=== PATIENT | female | born 1985 | race Caucasian/White ===

== ENCOUNTER 2019-04-27 11:38 | Day surgery (SDC) | payer MEDICAID ==
[~2019-04-27 11:38] MED LIST: CEFAZOLIN 2 GM/50 ML (PMX) 50 ML IVPB; SUGAMMADEX SODIUM 200 MG/2 ML VIAL IV
[2019-04-27] MEDS: LACTATED RINGER'S 1,000 ML IV (13:22)
[2019-04-27] MEDS ORDERED: KETOROLAC 30 MG INJ IV (14:30)
[2019-04-27] MEDS ORDERED: DESFLURANE 15 MIN (14:30)
[2019-04-27] MEDS ORDERED: OXYCODONE/ACETAMINOPHEN (5/325) TAB PO ×2 (14:30)
[2019-04-27] MEDS ORDERED: CEFAZOLIN 1 GM INJ (14:30)
[2019-04-27] MEDS ORDERED: FENTAnyl 50 MCG/ML VIAL IV ×3 (14:30)
[2019-04-27] MEDS ORDERED: HYDROmorphONE 1 MG/5 ML IV SYRINGE IV ×2 (14:30)
[2019-04-27] MEDS ORDERED: DIPHENHYDRAMINE 50 MG INJ IV (14:30)
[2019-04-27] MEDS ORDERED: MEPERIDINE 25 MG INJ IV (14:30)
[2019-04-27] MEDS ORDERED: ROCURONIUM 50 MG INJ ×2 (14:33→16:05)
[2019-04-27] MEDS ORDERED: PROPOFOL 20 ML (14:33)
[2019-04-27] MEDS ORDERED: MIDAZOLAM 1 MG/ML 2 ML INJ (14:33)
[2019-04-27] MEDS ORDERED: ROPIVACAINE 0.5 % 30 ML VIAL (14:33)
[2019-04-27] MEDS ORDERED: GLYCOPYRROLATE 0.4 MG INJ (15:23)
[2019-04-27] MEDS ORDERED: METOCLOPRAMIDE 10 MG INJ (15:23)
[2019-04-27] MEDS ORDERED: NEOSTIGMINE 3 MG/3 ML SYRINGE (15:23)
[2019-04-27] MEDS: BUPIVACAINE 0.25%/EPI (SDV) 10 ML INJ (16:02)
[2019-04-27] MEDS ORDERED: KETOROLAC 30 MG INJ (16:21)
[2019-04-27] MEDS: ONDANSETRON 4 MG INJ IV (16:36)
[2019-04-27] MEDS: HYDROmorphONE 1 MG/5 ML IV SYRINGE IV (17:13)
[2019-04-27] MEDS: KETOROLAC 30 MG INJ IM (17:14)
[2019-04-27] MEDS: DOXYCYCLINE 100 MG TAB PO (17:28)
[2019-04-27] MEDS: BUTORPHANOL 2 MG INJ IM (17:30)
== END 2019-04-27 19:00 | disposition home or self-care (01) ==
LOC: SDS 11:38
DX: Z30.2 Encounter for sterilization (principal)
CPT/HCPCS: 58670; 84703; 85025; 85610; 85730